=== PATIENT | male | born 1950 | race Caucasian/White ===

== ENCOUNTER → 2024-02-22 11:34 | Outpatient (REF) | payer MEDICARE, SELFPAY | LOC: HWRAD 11:34 | PROVIDERS: ATTENDING PHYSICIAN Family Medicine | DX: R06.02 Shortness of breath (principal) | CPT/HCPCS: 71046 ==

== ENCOUNTER → 2024-03-06 12:32 | Outpatient (REF) | payer MEDICARE, SELFPAY | LOC: HWRAD 12:32 | PROVIDERS: ATTENDING PHYSICIAN Family Medicine | DX: J18.9 Pneumonia, unspecified organism (principal) | CPT/HCPCS: 71046 ==

== ENCOUNTER → 2024-03-08 07:51 | Outpatient (REF) | payer MEDICARE, SELFPAY ==
[2024-03-08 08:30] LABS: INR 1.78; PT 20.9 Sec (11.4-14.6)
[2024-03-08 08:40] VITALS: BP 120/62; BP_SYST 102
[2024-03-08 08:52] VITALS: BP 109/65; BP_SYST 90
[2024-03-08 11:02] LABS: Body Fluid Glucose 102 mg/dl; Body Fluid LDH 106 U/L
[2024-03-08 11:42] LABS: Body Fluid Mononuclear 96.6 %; Body Fluid Polymorphonuclear 3.4 %; Body Fluid WBC 413 /CUMM
[2024-03-08 11:56] LABS: Body Fluid Second Tech HB
== END ==
LOC: RADI 07:51
PROVIDERS: ATTENDING PHYSICIAN Internal Medicine Critical Care Medicine; FAMILY PHYSICIAN Family Medicine
DX: J90 Pleural effusion, not elsewhere classified (principal)
CPT/HCPCS: 88305; 32555; 36415; 71045; 82945; 83615; 84157; 85610; 87015; 87070; 87102; 87205; 87206; 88112; 89051

== ENCOUNTER → 2024-03-12 09:24 | Outpatient (REF) | payer MEDICARE, SELFPAY | LOC: HWRAD 09:24 | PROVIDERS: ATTENDING PHYSICIAN Internal Medicine Critical Care Medicine; FAMILY PHYSICIAN Family Medicine | DX: R06.09 Other forms of dyspnea (principal); J90 Pleural effusion, not elsewhere classified; J44.9 Chronic obstructive pulmonary disease, unspecified | CPT/HCPCS: 71250 ==